=== PATIENT | male | born 1985 | race Caucasian/White ===

== ENCOUNTER 2016-08-19 00:38 | Emergency (ER) | payer OTHER ==
[~2016-08-19] VITALS: Ht 175.3 cm; Wt 86.2 kg
[~2016-08-19 00:38] MED LIST: AUGMENTIN 875-1 EACH PO; BENTYL20 M1 PO; DILAUDID2 MG PO; ESCITALOPRAM10 MG PO; HYDROXYZINE PAM50 MG PO; MOBIC15 M1 PO; ZOFRAN4 M1 SL
[2016-08-19 00:48] VITALS: BP 153/91
[2016-08-19] MEDS ORDERED: ESCITALOPRAM OX20 MG PO (00:50)
--- NOTE | 2016-08-19 01:31 | ED GI/GU/ABDOMINAL COMPLAINT ---
History of Present Illness General Chief Complaint: Male Genitourinary Problems Stated Complaint: "PER PT GROIN PAIN" Source: patient Exam Limitations: no limitations Vital Signs & Intake/Output Vital Signs & Intake/Output Vital Signs Date Time Temp Pulse Resp B/P Pulse O2 O2 Flow FiO2 Ox Delivery Rate 08/19 0124 Room Air 08/19 0048 99.9 106 18 153/91 94 Room Air Allergies Coded Allergies: MDX - Olanzapine (From ZYPREXA) (SWELLING 08/19/16) Reconcile Medications Amoxicillin 400 MG/5 ML SUSP.RECON 10 ML PO BID UTI Escitalopram Oxalate 20 MG TABLET 1 TAB PO DAILY DEPRESSION (Reported) Nitrofurantoin Monohyd/M-Cryst (Macrobid 100 MG Capsule) 100 MG CAPSULE 1 CAP PO BID UTI with food Triage Note: TRIAGE: PATIENT TO ER FROM HOME W/ GROIN PAIN AND URINARY FREQUENCY, DENIES BURNING W/ URINATION. PATIENT REPORTS HX UTI AND FEELS SAME. URINE DENIES N/V/D. 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 URINE SPECIMEN OBTAINED AND SENT TO LAB ([facility]). Triage Nurses Notes Reviewed? yes Onset: Abrupt Duration: day(s): (2) Timing: recent history Quality/Severity: mild Location: suprapubic No Modifying Factors: none HPI: This is a 31-year-old male presents to the ER for chief complain of not feeling well with some chills and some frequent urination for the past 2 days. History of 2 previous UTIs. He states in general he's been feeling kind of ill Denies any hematuria or pain on discharge. Patient reports previous history of UTI and kidney stones. Not currently essentially active and denies any new partners. Past History Travel History Traveled to [place] past 21 day No Medical History Any Pertinent Medical History? see below for history Neurological: NONE EENT: NONE Cardiovascular: PALPITATIONS Respiratory: NONE Gastrointestinal: NONE Hepatic: NONE Renal: NONE Musculoskeletal: NONE Psychiatric: depression Endocrine: NONE Blood Disorders: NONE Cancer(s): NONE DANCE INSTRUCTOR/Reproductive: NONE Other Medical Hx: Lyme disease Surgical History Surgical History: non-contributory Psychosocial History What is your primary language Japanese Tobacco Use: Refused to answer Family History Hx Contributory? No Review of Systems Review of Systems Constitutional: Reports: chills. Denies: fever. EENTM: Reports: no symptoms. Respiratory: Denies: cough, short of breath. Cardiovascular: Denies: chest pain. GI: Reports: see HPI (SUPRAPUBIC PRESSURE). Genitourinary: Reports: frequency, urgency. Denies: dysuria, hematuria. Musculoskeletal: Reports: no symptoms. Skin: Reports: no symptoms. Neurological/Psychological: Reports: anxiety. Hematologic/Endocrine: Reports: polyuria. Denies: bruising, bleeding, polydipsia. Immunologic/Allergic: Denies: splenectomy. All Other Systems: Reviewed and Negative Physical Exam Physical Exam General Appearance: well developed/nourished, alert, awake, anxious Head: atraumatic Eyes: Bilateral: PERRL, EOMI. Ears, Nose, Throat, Mouth: hearing grossly normal, moist mucous membrane Neck: normal inspection, supple, full range of motion Respiratory: normal breath sounds, chest non-tender, no respiratory distress Cardiovascular: regular rate/rhythm Gastrointestinal: normal bowel sounds, soft, non-tender Male Genitals: normal genitalia Back: normal inspection, normal range of motion Extremities: normal range of motion Neurologic/Psych: no motor/sensory deficits, awake, alert, oriented x 3 Skin: intact, normal color, warm/dry Core Measures ACS in differential dx? No Severe Sepsis Present: No Septic Shock Present: No Progress Differential Diagnosis: ureterolithiasis, urinary retention, urethritis, UTI/ pyelo Plan of Care: Orders Procedure Date/time Status CULTURE,URINE 08/19 50 Active URINALYSIS 08/19 50 Complete Laboratory Tests 08/19/16 0054: Urinalysis LIGHT H, Urine Color YEL, Urine Clarity CLEAR, Urine pH 6.0, Ur Specific [place] 1.020, Urine Protein NEG, Urine Ketones NEG, Urine Nitrite NEG, Urine Bilirubin NEG, Urine Urobilinogen 0.2, Ur Leukocyte Esterase NEG, Ur Microscopic SEDIMENT EXAMINED, Urine RBC 3-5, Urine Mucus MOD H, Urine Hemoglobin TRACE-INTACT H, Urine Glucose NEG Microbiology 08/19 53 URINE ROUT: Urine Culture - RECD Initial ED EKG: none Departure Departure Time of Disposition: 138 Disposition: HOME OR SELF CARE Condition: Stable Clinical Impression Primary Impression: Urinary frequency Referrals: ORACIO ROTHMAN APRN (PCP/Family) KEYANNA MARIE MD Additional Instructions: Take the antibiotic as directed and follow-up with Dr. Marie in the office. Drink plenty of fluids. Return to the ER for any changing or worsening symptoms , fever, chills, burning with urination or blood in the urine. Departure Forms: Customer Survey General Discharge Information Prescriptions: Current Visit Scripts Nitrofurantoin Monohyd/M-Cryst (Macrobid 100 MG Capsule) 1 CAP PO BID #14 CAP with food Amoxicillin 10 ML PO BID #140 ML
[2016-08-19] MEDS ORDERED: MACROBID 100 M100 MG PO (01:40)
[2016-08-19] MEDS ORDERED: AMOXICILLI400 MG/51 PO (03:38)
== END 2016-08-19 02:00 ==
LOC: ERH 00:38
DX: R35.0 Frequency of micturition (principal)
CPT/HCPCS: 81001; 87086